=== PATIENT | male | born 1990 | race Caucasian/White ===

== ENCOUNTER 2018-05-24 17:21 | Inpatient (IN) | payer OTHER ==
[~2018-05-24] VITALS: Ht 170.2 cm; Wt 86.2 kg
== END 2018-05-28 18:33 | disposition home or self-care (01) | DRG 392 ==
LOC: ER 17:21 → MEDI 05-25 14:09 → SURG 05-25 14:09
DX: K57.32 Diverticulitis of large intestine without perforation or abscess without bleeding (principal); E86.0 Dehydration

== ENCOUNTER 2019-09-09 09:43 | Emergency (ER) | payer OTHER ==
[~2019-09-09] VITALS: Ht 170.2 cm; Wt 81.6 kg
== END 2019-09-09 22:18 | disposition home or self-care (01) ==
LOC: ER 09:43
DX: K57.32 Diverticulitis of large intestine without perforation or abscess without bleeding (principal); R10.32 Left lower quadrant pain

== ENCOUNTER 2019-09-13 14:05 | Inpatient (IN) | payer OTHER ==
[~2019-09-13] VITALS: Ht 243.8 cm; Wt 5.0 kg
[2019-09-13] MEDS ORDERED: FLAGYL500MG (14:14)
[2019-09-13] MEDS ORDERED: CIPRO500 MG/5 M (14:14)
[2019-09-13] MEDS ORDERED: INTESTINEX680 M1 (14:14)
--- NOTE | 2019-09-13 14:14 | NUR ---
SE RECIBE PTE ALERTA Y ORIENTADO X3,REDFIERE TENER DOLOR EN EL AREA ABDOMINAL ,REFIERE TENER DIVERTICULOS.
--- NOTE | 2019-09-13 16:27 | NUR ---
MRS BUCK ORIENTA A PT SOBRE ORDENES MEDICAS, REFIERE ENTENDER. LE COLECTA MUESTRAS CANALIZA Y ADMINISTRA MEDICAMENTOS SHAILA PRESCRITOS PT TOLERA. COMIENZA A INGERIR CONTRASTE, SE NOTIFICA CT.
--- NOTE | 2019-09-14 | NUR ---
SE RECIBE PACIENTE EN CAMA CON MEDIDAS DE SEGURIDAD, LUCE ALERTA CONSCIENTE Y ORIENTADO X3. KENDALL DE DOLOR AL MOMENTO. BUEN PATRON RESPIRATORIO. IV. PATENTE NPO EN ESPERA DE SER VISTO EN CONSULTA POR CIRUIGIA
--- NOTE | 2019-09-14 07:07 | NUR ---
SE RECIBE DE TURNO ANTERIOR MASCULINO DE 29 ANOS,ALERTA,ORIENTADO EN LUANNE TEQUILA ESFERAS,EN COMPANIA DE FAMILIAR. SE OBSERVA CON BUEN PATRON RESPIRATORIO. IV PATENTE 0.9%NSS 1,000 ML @ 150ML/HR. CONSULTADO CON POR DIVERTICULO PERFORADO.
[2019-09-18] MEDS ORDERED: DICY20TA PO (11:05)
[2019-09-18] MEDS ORDERED: INTESTINEX680 M1 PO (11:05)
== END 2019-09-18 12:27 | disposition home or self-care (01) | DRG 392 ==
LOC: ER 14:05 → SURH 09-14 11:02
PROVIDERS: ADMIT Surgery
PROC: 02HV33Z Insertion of Infusion Device into Superior Vena Cava, Percutaneous Approach (ICD-10-PCS; principal; 2019-09-17)
DX: K57.20 Diverticulitis of large intestine with perforation and abscess without bleeding (principal); E86.0 Dehydration; E87.8 Other disorders of electrolyte and fluid balance, not elsewhere classified; R10.32 Left lower quadrant pain; I87.2 Venous insufficiency (chronic) (peripheral)

== ENCOUNTER 2019-10-02 14:41 | Emergency (ER) | payer OTHER ==
[~2019-10-02] VITALS: Ht 172.7 cm; Wt 77.1 kg
[~2019-10-02 14:41] MED LIST: CIPRO500 MG/5 M; DICY20TA PO; FLAGYL500MG; INTESTINEX680 M1; INTESTINEX680 M1 PO
== END 2019-10-02 21:41 | disposition home or self-care (01) ==
LOC: ER 14:41
DX: K57.92 Diverticulitis of intestine, part unspecified, without perforation or abscess without bleeding (principal)

== ENCOUNTER 2019-11-04 07:07 | Day surgery (SDC) | payer OTHER | END 2019-11-04 11:25 | disposition home or self-care (01) | LOC: AMB-ENDOS 07:07 | DX: K63.5 Polyp of colon (principal); K57.30 Diverticulosis of large intestine without perforation or abscess without bleeding; K64.8 Other hemorrhoids ==

== ENCOUNTER 2021-09-23 15:31 | Emergency (ER) | payer OTHER ==
[~2021-09-23] VITALS: Ht 172.7 cm; Wt 81.6 kg
[2021-09-23] MEDS ORDERED: LEVSIN/SL0.125 MG SL (18:39)
[2021-09-23] MEDS ORDERED: METRONIDAZOLE500 MG PO (18:39)
[2021-09-23] MEDS ORDERED: PROTONIX40 MG PO (18:39)
[2021-09-23] MEDS ORDERED: CIPRO500 MG PO (18:39)
== END 2021-09-23 18:50 | disposition home or self-care (01) ==
LOC: ER 15:31
DX: K57.92 Diverticulitis of intestine, part unspecified, without perforation or abscess without bleeding (principal)
CPT/HCPCS: 74177; Q9965

== ENCOUNTER 2022-11-10 13:19 | Emergency (ER) | payer OTHER ==
[~2022-11-10] VITALS: Ht 170.2 cm; Wt 70.3 kg
[~2022-11-10 13:19] MED LIST changes: +CIPRO500 MG PO; +LEVSIN/SL0.125 MG SL; +METRONIDAZOLE500 MG PO; +PROTONIX40 MG PO
[2022-11-10] MEDS ORDERED: DICLOFENAC SODI75 MG PO (18:51)
== END 2022-11-10 19:08 | disposition home or self-care (01) ==
LOC: ER 13:19
DX: R10.32 Left lower quadrant pain (principal); K57.90 Diverticulosis of intestine, part unspecified, without perforation or abscess without bleeding